=== PATIENT | female | born 1995 | race African-American/Black ===

== ENCOUNTER 2018-01-20 14:33 | Emergency (ER) | payer OTHER ==
[~2018-01-20] VITALS: Ht 149.9 cm; Wt 63.5 kg
[2018-01-20 14:40] VITALS: BP 120/68
[2018-01-20] MEDS ORDERED: TRIAMCINOLONE A80 G2 TOP ×2 (14:45→14:59)
[2018-01-20] MEDS ORDERED: MELATONIN5 M4 PO (14:45)
[2018-01-20] MEDS ORDERED: XANAX 0.5 MG0.5 MG PO (14:57)
== END 2018-01-20 15:07 | disposition home or self-care (01) ==
LOC: M.ERS 14:33
DX: F41.9 Anxiety disorder, unspecified (principal); Z76.0 Encounter for issue of repeat prescription; Z91.048 Other nonmedicinal substance allergy status

== ENCOUNTER 2018-06-17 06:41 | Emergency (ER) | payer OTHER ==
[~2018-06-17] VITALS: Ht 149.9 cm; Wt 66.7 kg
[~2018-06-17 06:41] MED LIST: MELATONIN5 M4 PO; TRIAMCINOLONE A80 G2 TOP; XANAX 0.5 MG0.5 MG PO
[2018-06-17 06:51] VITALS: BP 122/85
[2018-06-17] MEDS ORDERED: GUMMY FIBER (06:55)
== END 2018-06-17 07:19 | disposition home or self-care (01) ==
LOC: M.ERS 06:41
DX: J06.9 Acute upper respiratory infection, unspecified (principal); F41.9 Anxiety disorder, unspecified; Z91.09 Other allergy status, other than to drugs and biological substances

== ENCOUNTER 2019-04-16 21:04 | Emergency (ER) | payer OTHER ==
[~2019-04-16] VITALS: Ht 149.9 cm; Wt 66.2 kg
[~2019-04-16 21:04] MED LIST changes: +GUMMY FIBER
[2019-04-16] MEDS ORDERED: MELATONIN5 M1 PO (21:18)
[2019-04-16] MEDS ORDERED: BIRTH CONTROL (21:18)
[2019-04-16] MEDS ORDERED: TYLENOL EXTRA500 MG PO (21:19)
[2019-04-16] MEDS ORDERED: ROBAXIN 750 MG750 MG PO (21:25)
[2019-04-16] MEDS ORDERED: TRAMADOL 50 MG50 MG PO (21:25)
[2019-04-16 21:48] VITALS: BP 120/72
== END 2019-04-16 21:56 | disposition home or self-care (01) ==
LOC: M.ERS 21:04
DX: M25.511 Pain in right shoulder (principal); F41.9 Anxiety disorder, unspecified; Z98.890 Other specified postprocedural states; Z88.8 Allergy status to other drugs, medicaments and biological substances